=== PATIENT | male | born 1965 | race Caucasian/White ===

== ENCOUNTER → 2017-10-03 | Outpatient (CLI) | payer BC ==
--- NOTE | 2017-10-03 17:11 | Diagnostic Imaging Report ---
PROCEDURE:L-SPINE COMPLETE COMPARISON:None. INDICATIONS:LUMBAGO WITH SCIATICA FINDINGS: 5 views of the lumbar spine (AP, lateral, L5-S1 view, and bilateral obliques) There are 5 lumbar-type vertebral bodies. The vertebral bodies are well-aligned without evidence of spondylolisthesis. There are no fractures, lytic or blastic lesions. Mild multilevel degenerative changes of the lumbar spine with small osteophytes at multiple levels. Moderate osteophytes are seen in the lower thoracic spine and at L1-L2. Mild anterior wedging of the T12 vertebral body is probably physiologic. The sacroiliac joints are unremarkable. CONCLUSION: Multilevel degenerative changes of the lumbar spine. No fracture or malalignment. Dictated by: Chance Lowery M.D. on 10/03/2017 at 17:16 Electronically approved by: Chance Lowery M.D. on 10/03/2017 at 17:16
--- NOTE | 2017-10-03 17:13 | Diagnostic Imaging Report ---
PROCEDURE:SACRUM X-RAY INDICATION:Lumbago with sciatica COMPARISON:None. FINDINGS: 2 views of the sacrum (AP and lateral). CONCLUSION: Minimal degenerative changes of the sacroiliac joints. No fracture or malalignment. Dictated by: Chance Lowery M.D. on 10/03/2017 at 17:18 Electronically approved by: Chance Lowery M.D. on 10/03/2017 at 17:18
== END ==
LOC: RAD 14:59
PROVIDERS: ATTEND Internal Medicine
DX: M54.40 Lumbago with sciatica, unspecified side (principal)
CPT/HCPCS: 72110; 72220

== ENCOUNTER 2019-12-27 08:21 | Observation (INO) | payer BC ==
[~2019-12-27] VITALS: Ht 172.7 cm; Wt 96.6 kg
--- NOTE | 2019-12-27 08:29 | NUR ---
Negative [place] stroke scale assessment, equal bilateral river captain strengths, equal smile and tongue protusion, no slurred speech, steady balanced gait on arrival to ER.
[2019-12-27] MEDS ORDERED: GARLIC1000 MG (08:50)
[2019-12-27] MEDS ORDERED: LISINOPRIL10 MG PO (08:50)
[2019-12-27] MEDS ORDERED: COQ-10100 MG (08:50)
[2019-12-27] MEDS ORDERED: METFORMIN HCL500 MG PO (08:50)
[2019-12-27] MEDS ORDERED: ZETIA10 MG PO (08:50)
[2019-12-27] MEDS ORDERED: FISH OIL 1,4001 EACH (08:50)
[2019-12-27] MEDS ORDERED: SIMVASTATIN20 MG PO (08:50)
--- NOTE | 2019-12-27 09:00 | Emergency Department Note ---
History of Present Illnes History of Present Illness Chief Complaint: Headache History of Present Illness This is a 54 year old male c/o since he has had dizziness, and a headache in the back of the head into his neck and upper shoulders with bilateral leg pain and weakness the left more than the right, pt denies n/v, sore throat or shortness of breath. Pt states that on Friday his headache was the worst and Friday his daughter checked his blood sugar and it was 240 and yesterday it was 160. . Historian: Patient Arrival Mode: Car Ccna Required: No Onset (how long ago): day(s) (4-5 days) Radiation: Reports back, Reports neck Severity: moderate Onset quality: gradual Duration (how long): day(s) Timing of current episode: intermittent Progression: waxing and waning Chronicity: new Relieving factors: none Exacerbating factors: none Associated symptoms: Reports headaches, Reports malaise, Reports weakness Treatments prior to arrival: none Past Medical/Family History Physician Review I have reviewed the patient's past medical and family history. Any updates have been documented here. Past Medical History Recent Fever: No Clinical Suspicion of Infectio: No New/Unexplained Change in Ment: No Past Medical History: Hypertension, Diabetes, Hyperlipedemia Other Medical History: recovered from COVID 19 since August Past Surgical History: None Social History Smoking Cessation: Never Smoker Counseling Performed: Yes Alcohol Use: None Any Illegal Drug Use: No Physically hurt or threatened: No Other Any Pre-Existing Lines (PICC,: No Review of Systems Review of Systems Constitutional: Reports as per HPI, Reports malaise, Reports weakness EENTM: Reports no symptoms Cardiovascular: Reports no symptoms Respiratory: Reports no symptoms Gastrointestinal: Reports no symptoms Genitourinary: Reports no symptoms Musculoskeletal: Reports no symptoms Integumentary: Reports no symptoms Neurological: Reports as per HPI, Reports paresthesia, Reports weakness Psychological: Reports no symptoms Endocrine: Reports no symptoms Hematological/Lymphatic: Reports no symptoms Physical Exam Related Data Allergies: Coded Allergies: aspirin (Verified Allergy, Intermediate, rash/hives, 12/27/19) Triage Vital Signs Vital Signs Date Time Temp Pulse Resp B/P (MAP) Pulse Ox O2 Delivery O2 Flow Rate FiO2 12/27/19 08:29 97.9 63 18 150/70 99 Room Air Vital signs reviewed: Yes Physical Exam CONSTITUTIONAL Constitutional: Present well-developed, Present well-nourished HENT HENT: Present normocephalic, Present atraumatic, Present oropharynx clear/moist, Present nose normal HENT L/R: Present left ext ear normal, Present right ext ear normal EYES Eyes: Reports PERRL, Reports conjunctivae normal NECK Neck: Present ROM normal PULMONARY Pulmonary: Present effort normal, Present breath sounds normal CARDIOVASCULAR Cardiovascular: Present regular rhythm, Present heart sounds normal, Present capillary refill normal, Present normal rate GASTROINTESTINAL Abdominal: Present soft, Present nontender, Present bowel sounds normal GENITOURINARY Genitourinary: Present exam deferred SKIN Skin: Present warm, Present dry MUSCULOSKELETAL Musculoskeletal: Present ROM normal NEUROLOGICAL Neurological: Present alert, Present oriented x 3, Present no gross motor or sensory deficits, Present other (walks steady gaits) PSYCHOLOGICAL Psychological: Present mood/affect normal, Present judgement normal Results Laboratory Lab results reviewed: Yes Laboratory comments cardiac marker ok Imaging Imaging results reviewed: Yes Imaging Comments no acute Procedures 12 Lead ECG Interpretation ECG Interpretation : ECG: ECG 1 Ccna: Interpreted by ED physician Date: Dec 27, 2019 Time: 08:57 Prior ECG tracings: reviewed Rhythm: sinus rhythm Rate: normal QRS axis: normal ST segments normal: Yes T waves flattening: III Clinical Impression: abnormal ECG Additional Comments borderline EKG Assessment & Plan Medical Decision Making MDM viral illness, infection, tia, cva Reassessment Reassessment time: 10:33 Reassessment no change Assessment & Plan Final Impression: (1) TIA (transient ischemic attack) (2) Dizziness (3) Neuropathy in diabetes Depart Disposition: ADMITTED Last Vital Signs Date Time Temp Pulse Resp B/P (MAP) Pulse Ox O2 Delivery O2 Flow Rate FiO2 12/27/19 08:29 97.9 63 18 150/70 99 Room Air Home Meds Reported Medications Garlic (GARLIC) 1,000 Mg Capsule 12/27/19 Ubidecarenone (COQ-10) 100 Mg Capsule, 200 12/27/19 [place]-3/Dha/Epa/Fish Oil (FISH OIL 1,400 MG SOFTGEL) 1 Each Capsule., 2400 12/27/19 Simvastatin (SIMVASTATIN) 20 Mg Tablet, 20 MG PO 2100, EA 12/27/19 Ezetimibe (ZETIA) 10 Mg Tablet, 10 MG PO DAILY, #30 TAB 12/27/19 Lisinopril (LISINOPRIL) 10 Mg Tablet, 40 MG PO DAILY, #30 TAB 12/27/19 Metformin Hcl (METFORMIN HCL) 500 Mg Tablet, 500 MG PO DAILY, #60 TAB 12/27/19 Physician Attestation Provider Attestation case discussed with JAIDA Montez MD Dec 27, 2019 09:00
--- NOTE | 2019-12-27 09:00 | NUR ---
[facility] called to bead picker blood tube to run for CBC.
[2019-12-27] MEDS ORDERED: SODIUM CHLORIDE FLUSH 10 ML SYR INJ PRN (09:15)
[2019-12-27] MEDS ORDERED: DIPHENHYDRAMINE HCL INJ 50 MG/ML VIAL IV PRN (09:15)
[2019-12-27] MEDS ORDERED: ONDANSETRON HCL INJ 2MG/ML 2ML 2 MG/ML VIAL IV PRN (09:15)
[2019-12-27] MEDS ORDERED: ENALAPRILAT IV INJ 1.25 MG/ML VIAL IV PRN (09:15)
[2019-12-27] MEDS ORDERED: ACETAMINOPHEN 325 MG TAB PO PRN (09:15)
--- OUTSIDE RECORDS SUMMARY | 2019-12-27 09:20 | XMS REPORT | Continuity of Care Document ---
Author Author [facility] t Organization [facility] Address [address] 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 Allergies, Adverse Reactions, Alerts This patient has no known allergies or adverse reactions. Medications This patient has no known medications. Procedures This patient has no known procedures. Encounters Start Date/Time End Date/Time Encounter Type Admission Type [facility] Care Department Encounter ID Source 2019-10-03 11:03:00 2019-10-03 11:03:00 Outpatient E [id number] 2018-08-09 13:59:00 2018-08-09 13:59:00 Emergency E [facility] Results Test Description Test Time Test Comments Results Result Comments Source SACRUM X-RAY 2017-10-03 17:18:00 [facility] [address] [place] [id number] Patient Name: GINA GIBBS MR #: [id number] : 1965 Age/Sex: 52/M Req #: [id number] Adm Physician: Ordered by: SCHUYLER SANCHEZ MD Report #: [id number] Location: [facility] Room/Bed: Procedure: [id number] DX/SACRUM X-RAY Exam Date: 10/03/17 Exam Time: 1515 REPORT STATUS: Signed PROCEDURE: SACRUM X-RAY INDICATION: Lumbago with sciatica COMPARISON: None. FINDINGS: 2 views of the sacrum (AP and lateral). CONCLUSION: Minimal degenerative changes of the sacroiliac joints. No fracture or malalignment. Dictated by: Elmer Lowery M.D. on 10/03/2017 at 17:18 Electronically approved by: Elmer Lowery M.D. on 10/03/2017 at 17:18 Dictated By: ELMER LOWERY MD 17 Transcribed By: BAKARI on 10/03/171717 COPY TO: SCHUYLER SANCHEZ MD SP LUMBAR, COMPLETE MIN 4VW 2017-10-03 17:16:00 [place] [address] Patient Name: GINA GIBBS MR #: [id number] : 1965 Age/Sex: 52/M Req #: [id number] Adm Physician: Ordered by: SCHUYLER SANCHEZ MD Report #: [id number] Location: [facility] Room/Bed: Procedure: [id number] DX/SP LUMBAR, COMPLETE MIN 4VW Exam Date: 10/03/17 Exam Time: 1514 REPORT STATUS: Signed PROCEDURE: L-SPINE COMPLETE COMPARISON: None. INDICATIONS: LUMBAGO WITH SCIATICA FINDINGS: 5 views of the lumbar spine (AP, lateral, L5-S1 view, and bilateral obliques) There are 5 lumbar-type vertebral bodies. The vertebral bodies are well-aligned without evidence of spondylolisthesis. There are no fractures, lytic or blastic lesions. Mild multilevel degenerative changes of the lumbar spine with small osteophytes at multiple levels. Moderate osteophytes are seen in the lower thoracic spine and at L1-L2. Mild anterior wedging of the T12 vertebral body is probably physiologic. The sacroiliac joints are unremarkable. CONCLUSION: Multilevel degenerative changes of the lumbar spine. No fracture or malalignment. Dictated by: Elmer Lowery M.D. on 2017 at 17:16 Electronically approved by: Elmer Lowery M.D. on 10/03/2017 at 17:16 Dictated By: ELMER LOWERY MD [id number] Transcribed By: BAKARI on 10/03/17 1716 COPY TO: SCHUYLER SANCHEZ MD
--- OUTSIDE RECORDS SUMMARY | 2019-12-27 09:28 | XMS REPORT | Continuity of Care Document ---
Author Author [facility] t Organization [facility] Address [address] 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 Allergies, Adverse Reactions, Alerts This patient has no known allergies or adverse reactions. Medications This patient has no known medications. Procedures This patient has no known procedures. Encounters Start Date/Time End Date/Time Encounter Type Admission Type [facility] Care Department Encounter ID Source 2019-10-03 11:03:00 2019-10-03 11:03:00 Outpatient E [facility] 2018-08-09 13:59:00 2018-08-09 13:59:00 Emergency E [facility] Results Test Description Test Time Test Comments Results Result Comments Source SACRUM X-RAY 2017-10-03 17:18:00 [facility] [address] [place] [id number] Patient Name: GINA GIBBS MR #: [id number] : 1965 Age/Sex: 52/M Req #: [id number] Adm Physician: Ordered by: SCHUYLER SANCHEZ MD Report #: [id number] Location: [facility] Room/Bed: Procedure: [id number] DX/SACRUM X-RAY Exam Date: 10/03/17 Exam Time: [...] SP LUMBAR, COMPLETE MIN 4VW 2017-10-03 17:16:00 [place] [address] Patient Name: GINA GIBBS MR #: [id number] : 1965 Age/Sex: 52/M Req #: [id number] Adm Physician: Ordered by: SCHUYLER SANCHEZ MD Report #: [id number] Location: [facility] Room/Bed: Procedure: [id number] DX/SP LUMBAR, COMPLETE MIN 4VW Exam Date: [...]
[2019-12-27] MEDS ORDERED: DEXTROSE 50% SYRINGE 50 ML IV PRN (09:45)
--- NOTE | 2019-12-27 09:50 | Diagnostic Imaging Report ---
CT BRAIN [facility] HISTORY: Headache COMPARISON: None. TECHNIQUE: Noncontrast axial scans were obtained from skull base to the vertex. Coronal and sagittal reconstructions obtained from the axial data. One or more of the following dose reduction techniques were used: Automated exposure control, adjustment of the mA and/or kV according to patient size, and/or utilization of iterative reconstruction technique. DISCUSSION: Scalp/Skull: Unremarkable. Brain sulci: Appropriate for patient's age. Ventricles: Normal in size and configuration. No hydrocephalus. Extra-axial spaces: No masses or fluid collections. Mild carotid siphon calcifications. Parenchyma: No abnormal densities. No mass, hemorrhage, or large vascular territory acute infarct. Dural sinuses: No abnormal densities. Sellar/Suprasellar region: Intact. Skull base: Intact. Incidental findings: Partially imaged mild scattered bilateral paranasal sinus mucosal thickening. Mildly sclerotic left mastoid air cells may be from remote and/or chronic information. IMPRESSION: 1. Mild carotid siphon calcifications. 2. No other intracranial abnormalities. Signed by: Dr. Bola Ba M.D. on 12/27/2019 9:46 AM
[2019-12-27 11:12] LABS: BASOPHILS % 0.8 % (0.0-1.0); EOSINOPHILS # (AUTO) 0.2 (0.0-0.4); EOSINOPHILS % 4.7 % (0.0-6.0); HEMATOCRIT 43.5 % (38.2-49.6); HEMOGLOBIN 14.9 g/dL (14.0-18.0); LYMPHOCYTES # (AUTO) 1.5 (1.0-3.2); LYMPHOCYTES % 30.4 % (18.0-39.1); MEAN CORPUSCULAR HEMOGLOBIN 30.9 pg (28-32); MEAN CORPUSCULAR HGB CONC 34.3 g/dL (31-35); MEAN CORPUSCULAR VOLUME 90.2 fL (81-99); MONOCYTES # (AUTO) 0.6 (0.2-0.8); MONOCYTES % 11.6 % (4.4-11.3); NEUTROPHILS # (AUTO) 2.6 (2.1-6.9); NEUTROPHILS % 52.3 % (38.7-80.0); PLATELET COUNT 231 x10e3/uL (140-360); RED BLOOD COUNT 4.82 x10e6/uL (4.3-5.7); RED CELL DISTRIBUTION WIDTH 12.5 % (11.7-14.4)
--- NOTE | 2019-12-27 11:24 | NUR ---
[facility] called for transport to room 106
[2019-12-27] MEDS ORDERED: INSULIN REGULAR, HUMAN 100 UNIT/1 ML 3ML VIAL SQ SCH (11:30)
--- NOTE | 2019-12-27 12:20 | NUR ---
Report to PAZ Pearce
[2019-12-27 12:51] VITALS: BP 140/69
[2019-12-27 13:04] VITALS: BP 140/69
--- NOTE | 2019-12-27 15:08 | Diagnostic Imaging Report ---
MRI BRAIN WO HISTORY: Leg pain and weakness COMPARISON: Head CT 12/27/2019 TECHNIQUE: Sagittal T2, axial T2, axial T1, axial T2/FLAIR, axial gradient echo (or susceptibility weighted), coronal T2/FLAIR, and axial diffusion weighted MR images of the brain were obtained without contrast. DISCUSSION: Scalp/bone marrow: Unremarkable. Brain sulci: Appropriate for patient's age. Ventricles: Normal in size and configuration. No hydrocephalus. Extra-axial spaces: No masses or fluid collections. Parenchyma: A few scattered small T2/FLAIR hyperintense foci throughout the supratentorial white matter are likely chronic microvascular ischemic changes. Otherwise, no mass, hemorrhage, or acute vascular insults. Vessels: Normal flow voids in major arteries and veins. Sellar/Suprasellar region: No abnormalities. Craniocervical junction: No abnormalities. Incidental findings: Mild scattered paranasal sinus mucosal thickening, most prominent in the left maxillary sinus. 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 Trace left mastoid effusion. IMPRESSION: 1. No acute intracranial abnormalities. 2. Minimal supratentorial chronic microvascular ischemic change. Signed by: Dr. Bola Ba M.D. on 12/27/2019 3:04 PM
--- NOTE | 2019-12-27 20:24 | History and Physical ---
PRIMARY CARE DOCTOR: Orlando Daniels MD CHIEF COMPLAINT: Dizziness. HISTORY OF PRESENT ILLNESS: This is a 54-year-old male with diabetic for the last 6 months, came in with 3-day history of on and off headache in the back of his head, that has gone away. The patient also noticed some dizziness when he looks to the right. The patient also reports some left arm numbness and initially left leg tingling. However, now he is stating that his whole body just does not feel right. It sounds like the sensation is off. More prominently in both of his legs from the buttocks all the way down to his feet. The patient denies chest pain or shortness of breath. The patient did have a COVID-19, 3-4 months ago. The patient states that normally he can go up five flights of stairs, but now he can only do two flights of stairs. Otherwise, no fever, no cough, no chest pain, no shortness of breath. No nausea or vomiting. PAST MEDICAL AND SURGICAL HISTORY: 1. Hypertension. 2. Diabetes. 3. Hyperlipidemia. MEDICATIONS: Please see medication reconciliation form. ALLERGIES: TO ASPIRIN. SOCIAL HISTORY: He smokes. FAMILY HISTORY: Diabetes. REVIEW OF SYSTEMS: A 10-point review of system obtained and nothing else is significant other than what is stated in the HPI PHYSICAL EXAMINATION: VITAL SIGNS: Temperature 98.8, pulse 61, respiratory rate 20, and blood pressure 140/69. GENERAL: In no acute distress. SKIN: No rash. HEENT: Anicteric. Oropharynx is clear. LUNGS: Clear. HEART: Regular rate and rhythm. Normal S1, S2. GI: Abdomen is soft and nondistended. NEUROLOGIC: Alert and oriented x3. Cranial nerves II through XII grossly intact. PSYCHIATRIC: no hallucination. MUSCULOSKELETAL: Painless range of motion. LABORATORY DATA: White count 5, hemoglobin 15, and platelet count 231. MRI of the brain is unremarkable. ASSESSMENT AND PLAN: Nonspecific neurologic complaints likely peripheral in etiology. Given the MRI of the brain is negative. Possibly this is peripheral neuropathy. However, I do not think this is diabetic neuropathy. Given the fact that he has only been diabetic for six months. He had a possibility that this is sequelae of his COVID-19 infection. At this time, I feel comfortable to let him go home. The patient will follow up with his primary care doctor, possibly see neurologist about his nonspecific neurologic complaint. I will notify his primary care doctor about this hospitalization. MD CAITLIN Garcia/ELMA /[id number] cc: [facility] [place]
--- NOTE | 2019-12-27 20:53 | Discharge Summary ---
PRIMARY CARE PHYSICIAN: Orlando Daniels MD FINAL DIAGNOSIS: Nonspecific neurologic complaint with dizziness, headache, numbness, and tingling sensation. SECONDARY DIAGNOSES: 1. Diabetes. 2. Hypertension. 3. Dyslipidemia. PROCEDURE/STUDIES PERFORMED: 1. Head CT. 2. Brain MRI. CONSULTANTS: None. HISTORY: Per dictated H and P. HOSPITAL COURSE: Given his MRI was following. The patient was stable for discharge home. However, I did suggest for him to see a [facility] neurologist for his nonspecific neurologic complaint. CONDITION ON DISCHARGE: Improved. DISCHARGE MEDICATIONS: Please see medication reconciliation form. Yiching MD CAITLIN Garrido/ELMA /[id number]
[2019-12-28] MEDS ORDERED: ASPIRIN 81 MG ENTERIC COATED PO SCH (09:00)
== END 2019-12-27 16:43 | disposition home or self-care (01) ==
LOC: FSED 09:07 → ERHOLD 09:10 → INTOOBSV 09:10 → MED/SURG 12:32
PROVIDERS: ADMIT Internal Medicine; ATTEND Internal Medicine
DX: R29.818 Other symptoms and signs involving the nervous system (principal); E11.42 Type 2 diabetes mellitus with diabetic polyneuropathy; B94.8 Sequelae of other specified infectious and parasitic diseases; G62.9 Polyneuropathy, unspecified; I10 Essential (primary) hypertension; E78.5 Hyperlipidemia, unspecified
CPT/HCPCS: 36415; 70450; 70551; 80053; 81003; 82553; 82948; 84484; 85025; 93005; 93880; 99284; G0378; J1200

== ENCOUNTER → 2020-05-22 | Outpatient (CLI) | payer BC ==
[~2020-05-22] MED LIST: COQ-10100 MG; FISH OIL 1,4001 EACH; GARLIC1000 MG; LISINOPRIL10 MG PO; METFORMIN HCL500 MG PO; SIMVASTATIN20 MG PO; ZETIA10 MG PO
== END ==
LOC: RAD 16:16
PROVIDERS: ATTEND Internal Medicine
DX: M47.816 Spondylosis without myelopathy or radiculopathy, lumbar region (principal)
CPT/HCPCS: 72110

== ENCOUNTER → 2024-11-30 | Day surgery (SDC) | payer BC, OTHER ==
[~2024-11-30] MED LIST changes: +AMLODIPINE BESY10 MG PO; +B COMPLEX WITH1 EAC1 PO; +FOLIC ACID0.4 MG PO; +GABAPENTIN300 MG PO; +HYDROCHLOROTHIA25 MG PO; +HYOSCYAMINE SULFATE 0.5 MG/ML INJ ONE; +LACTATED RINGER'S 1,000 ML ONE; +LIDOCAINE HCL 2% LOCAL INJ 5 ML SDV VIAL INJ ONE; +PROPOFOL IV EMULSION 10 MG/ML 20 ML VIAL ONE; +PROPOFOL IV EMULSION 50 ML IV ONE; +VIT D3 PO
[2024-11-30 13:58] VITALS: TEMP 98.3
[2024-11-30 14:25] VITALS: BP 130/80; PULSE 59; RESP 17; O2SAT 99
== END | disposition home or self-care (01) ==
LOC: OR 11:41
PROVIDERS: ATTEND Internal Medicine Gastroenterology
DX: Z09 Encounter for follow-up examination after completed treatment for conditions other than malignant neoplasm (principal); K62.1 Rectal polyp; K64.8 Other hemorrhoids; I10 Essential (primary) hypertension; E78.5 Hyperlipidemia, unspecified; E11.9 Type 2 diabetes mellitus without complications; E66.01 Morbid (severe) obesity due to excess calories; F17.200 Nicotine dependence, unspecified, uncomplicated; Z88.6 Allergy status to analgesic agent; Z01.810 Encounter for preprocedural cardiovascular examination; Z79.84 Long term (current) use of oral hypoglycemic drugs; Z79.899 Other long term (current) drug therapy
CPT/HCPCS: 36415; 45385; 82948; 93005; J1980; J2003; J2704; J7121; 45378